=== PATIENT | female | born 1975 | race Caucasian/White ===

== ENCOUNTER → 2019-09-04 13:10 | Outpatient (CLI) | payer BC, SELFPAY ==
--- NOTE | ~2019-09-04 | MM_ITS ---
EXAMINATION: MM screening [facility] BI w bryan HISTORY: Screening mammogram TECHNIQUE: Craniocaudal and mediolateral oblique 3-D tomosynthesis images were obtained and synthetic 2-D images were generated. CAD analysis was submitted and interpreted. COMPARISON: 08/07/2018 BREAST PARENCHYMAL COMPOSITION: The breasts are heterogeneously dense, which may obscure small masses . FINDINGS: There is no evidence of suspicious mass, calcification, or architectural distortion to sugg est malignancy in either breast. There has been no suspicious interval change. IMPRESSION: 1. No mammographic evidence of malignancy. 2. Recommend routine screening mammography in one year. BI-RADS Category 1: Negative Reviewed, dictated and finalized at location A.
== END ==
PROVIDERS: Visit Provider Physician Assistant
DX: Z12.31 Encounter for screening mammogram for malignant neoplasm of breast (principal)
CPT/HCPCS: 77063; 77067

== ENCOUNTER → 2020-09-18 10:47 | Outpatient (CLI) | payer BC, SELFPAY ==
--- NOTE | ~2020-09-18 | MM_ITS ---
EXAMINATION: MM screening [facility] BI w bryan HISTORY: Screening mammogram TECHNIQUE: Craniocaudal and mediolateral oblique 3-D tomosynthesis images were obtained and synthetic 2-D images were generated. CAD analysis was submitted and interpreted. COMPARISON: 09/04/2019, 08/07/2018 BREAST PARENCHYMAL COMPOSITION: The breasts are heterogeneously dense, which may obscure small masses . FINDINGS: There is no evidence of suspicious mass, calcification, or architectural distortion to sugg est malignancy in either breast. There has been no suspicious interval change. IMPRESSION: 1. No mammographic evidence of malignancy. 2. Recommend routine screening mammography in one year. BI-RADS Category 1: Negative Reviewed, dictated and finalized at location A.
== END ==
PROVIDERS: PCP Physician Assistant; Visit Provider Obstetrics & Gynecology
DX: Z12.31 Encounter for screening mammogram for malignant neoplasm of breast (principal)
CPT/HCPCS: 77063; 77067

== ENCOUNTER → 2021-11-09 14:05 | Outpatient (CLI) | payer OTHER, SELFPAY ==
--- NOTE | ~2021-11-09 | MM_ITS ---
EXAMINATION: MM screening [facility] BI w bryan HISTORY: Screening mammogram TECHNIQUE: Craniocaudal and mediolateral oblique 3-D tomosynthesis images were obtained and synthetic 2-D images were generated. CAD analysis was submitted and interpreted. COMPARISON: 09/18/2020, 09/04/2019 BREAST PARENCHYMAL COMPOSITION: The breasts are heterogeneously dense, which may obscure small masses . FINDINGS: There is no suspicious mass, calcification, or architectural distortion to suggest malignan cy in either breast. There has been no suspicious interval change. IMPRESSION: 1. No mammographic evidence of malignancy. 2. Recommend routine screening mammography in one year. BI-RADS Category 1: Negative Reviewed, dictated and finalized at location A.
== END ==
PROVIDERS: PCP Physician Assistant; Visit Provider Obstetrics & Gynecology
DX: Z12.31 Encounter for screening mammogram for malignant neoplasm of breast (principal)
CPT/HCPCS: 77063; 77067

== ENCOUNTER → 2021-12-22 15:14 | Outpatient (CLI) | payer OTHER, SELFPAY ==
--- NOTE | ~2021-12-22 | XR_ITS ---
EXAM: XR lumbar spine 2-3V DATE: 12/22/2021 15:34 HISTORY: Lumbar radiculopathy . COMPARISON: None available. FINDINGS: Osteopenia. 5 nonrib-bearing lumbar-type vertebral bodies. Pedicles intact. 3 mm anterolist hesis of L4 on L5, otherwise normal vertebral body alignment. Concave endplate deformities at multipl e levels. No anterior wedge deformities. Mild disc space narrowing at L4-5 and L5-S1. Multilevel face t sclerosis and hypertrophy. No fracture or dislocation. Partially visualized right hip arthroplasty. IMPRESSION: Grade 1 anterolisthesis of L4 on L5. Mild degenerative change at L4-5 and L5-S1. Multilev el facet arthropathy. Osteoporotic endplate deformities. Reviewed, dictated and finalized at location K. IMPRESSION: Grade 1 anterolisthesis of L4 on L5. Mild degenerative change at L4 -5 and L5-S1. Multilevel facet arthropathy. Osteoporotic endplate deformities.
== END ==
PROVIDERS: PCP Physician Assistant; Visit Provider Physician Assistant
DX: M47.27 Other spondylosis with radiculopathy, lumbosacral region (principal)
CPT/HCPCS: 72100

== ENCOUNTER → 2022-01-06 16:27 | Outpatient (CLI) | payer OTHER, SELFPAY ==
--- NOTE | ~2022-01-06 | MR_ITS ---
EXAMINATION: MR lumbar spine wo con DATE: 01/06/2022 16:54 INDICATION: Lumbar radiculopathy TECHNIQUE: Magnetic resonance imaging (MRI) of the lumbar spine was performed without intravenous con trast. Sequences included sagittal T2-weighted FSE, sagittal T2-weighted FS FSE, sagittal T1-weighted FSE, and axial T2-weighted FSE. COMPARISON: Lumbar spine radiographs dated 12/22/2021 FINDINGS: 5 degrees lumbar levocurvature. 2-3 mm anterolisthesis L4 on L5. Vertebral body heights are normal. Normal marrow signal. Annular fissure and mild disc height loss at L4-L5. Additional annular fissure at L5-S1. The conus medullaris terminates at L1. There is normal signal in the caudal spinal cord. Pa ravertebral soft tissues are unremarkable. The following disc levels are specifically discussed: T12-L1: The disc does not extend beyond the endplate margin. There is no facet joint osteoarthritis. There is no neural foraminal stenosis. There is no central canal stenosis. L1-L2: The disc does not extend beyond the endplate margin. There is mild bilateral facet joint osteo arthritis. There is no neural foraminal stenosis. There is no central canal stenosis. L2-L3: The disc does not extend beyond the endplate margin. There is mild left and minimal right face t joint osteoarthritis. There is no neural foraminal stenosis. There is no central canal stenosis. L3-L4: Disc is minimally bulging. There is mild bilateral facet joint osteoarthritis. There is minima l bilateral neural foraminal stenosis. There is no central canal stenosis. L4-L5: Disc is bulging. There is severe bilateral facet joint osteoarthritis. There is mild right and moderate left neural foraminal stenosis. There is moderate central canal stenosis along with narrowi ng of the lateral recesses, left greater than right. L5-S1: Disc is minimally bulging. There is mild to moderate bilateral facet joint osteoarthritis. The re is mild right and mild to moderate left neural foraminal stenosis. There is no central canal steno sis. IMPRESSION: 1. Mild lower lumbar spondylosis with 2-3 mm anterolisthesis of L4 on L5 which contributes to moderat e central canal stenosis and moderate left neural foraminal stenosis at this level. Reviewed, dictated and finalized at location B. IMPRESSION: 1. Mild lower lumbar spondylosis with 2-3 mm anterolisthesis of L4 on L5 which contributes to moderate central canal stenosis and moderate left neural foramin al stenosis at this level.
== END ==
PROVIDERS: PCP Physician Assistant; Visit Provider Physician Assistant
DX: M54.16 Radiculopathy, lumbar region (principal); M43.06 Spondylolysis, lumbar region; M48.061 Spinal stenosis, lumbar region without neurogenic claudication
CPT/HCPCS: 72148

== ENCOUNTER → 2023-01-03 13:57 | Outpatient (CLI) | payer OTHER, SELFPAY ==
--- NOTE | ~2023-01-03 | MM_ITS ---
EXAMINATION: MM screening [facility] BI w bryan HISTORY: Screening mammogram TECHNIQUE: Craniocaudal and mediolateral oblique 3-D tomosynthesis images were obtained and synthetic 2-D images were generated. Bilateral rotated lateral CC views. CAD analysis was submitted and interp reted. COMPARISON: 11/09/2021, 09/18/2020, 09/04/2019 bilateral screening mammogram examinations BREAST PARENCHYMAL COMPOSITION: The breasts are heterogeneously dense, which may obscure small masses . FINDINGS: There is no evidence of suspicious mass, calcification, or architectural distortion to sugg est malignancy in either breast. There has been no suspicious interval change. IMPRESSION: 1. No mammographic evidence of malignancy. 2. Recommend routine screening mammography in one year. BI-RADS Category 1: Negative Reviewed, dictated and finalized at location A.
== END ==
PROVIDERS: PCP Physician Assistant; Visit Provider Obstetrics & Gynecology
DX: Z12.31 Encounter for screening mammogram for malignant neoplasm of breast (principal)
CPT/HCPCS: 77063; 77067

== ENCOUNTER 2023-03-04 04:03 | Day surgery (SDC) | payer OTHER, SELFPAY ==
[2023-02-22 15:40] VITALS: BMI 27.4
--- NOTE | 2023-02-22 15:48 | SUR.PREOP ---
Report to the Outpatient Waiting Room, entrance under the green pavilion located off [facility], at time 0600 on date 03/04/23. Planned Procedure Time: 0730. Time changes happen often and if your time is changed the preop area will call you the afternoon before. - You and your visitor will be asked to self-screen and do not enter if you have any COVID symptoms. - A mask is optional within the hospital at this time. Patients may have clear liquids (water, carbonated beverages, clear teas, apple juice) until 3 hours prior to surgery with a maximum of 20 ounces. - No food from midnight until time of surgery BEFORE 0430 - Infants may have breast milk until 4 hours before surgery, infant formula 6 hours prior to surgery. - Children will be allowed to drink immediately following surgery. If applicable, please bring a bottle or sippy cup to assist with drinking. Juice, water, soda, and popsicles are readily available. For infants on formula, please bring formula the day of surgery. Pacifiers are allowed. Take the following medications with a SIP of water the morning of surgery: __HOLD MORNING MEDS DO NOT STOP ANY OF YOUR OTHER PRESCRIPTION MEDICATIONS PRIOR TO SURGERY ?EXCEPT THE FOLLOWING Medications to discontinue per physician Date to take last dose Please no make-up, nail upper sorbian, hairspray, perfume, deodorant, or body powder the day of surgery. No jewelry (including any body piercings) or valuables the day of surgery, leave them at home. Please take a shower or bath the night before, or the morning of, surgery with an antibacterial soap. Wear comfortable, loose fitting clothing. Children are encouraged to wear pajamas. - Jewelry must be removed prior to entering the operating room. Rings and piercings that are not removed may be cut off. - The hospital will not accept responsibility for valuables. - Please leave all valuables, including medications, at home the day of surgery. If you are going home after surgery, a licensed batch mixing truck driver must drive you home. - NO public transportation without another adult if you receive anesthesia. - We recommend that an adult stay with you for 24 hours following discharge. - We also recommend that you do not drive, make important decision, drink alcoholic beverages, or take any drugs that were not prescribed by your health care provider for at least 24 hours after your discharge time. For Pediatric surgeries, we recommend two adults accompany the child home. Follow any additional instructions given to you from your surgeon. If you or anyone in your household have experienced Covid symptoms in the past week, please notify your surgeon or the nurse liaison at the phone number below for possible testing. Telephone instructions given to ___PATIENT____and asked if any additional questions and then verbalized understanding. Patient advised to call surgeon office or pre surgery nurse liaison [phone] if any additional questions.
--- NOTE | 2023-03-02 21:50 | PM.IMHP ---
H&P: HPI History of Present Illness Date/Time: 03/02/23 21:50 Chief Complaint: Incontinence Narrative: 48-year-old with stress incontinence. She desires surgical correction Review of Systems Review of Systems: All systems reviewed & are unremarkable except as noted in HPI and below PMFSH Past Medical History Medical History Heart murmur High cholesterol Mononucleosis Rheumatic fever Screening mammogram for breast cancer Surgical History Surgical History H/O gynecological procedure Mirena 11/15/2019 - removal / reinsertion Mirena insertion ? History of carpal tunnel surgery 2006 History of dilation and curettage History of orthopedic surgery R hip as an infant R hip replacement History of placement of ear tubes Family History Family History Father Hypertension Mother Hypertension Family history of coronary artery disease Hyperlipidemia Grandparent Hypertension Acute myocardial infarction Congestive heart failure Arthritis Social History Social History Smoking status: Never smoker Alcohol intake: current Alcohol use details: OCCASIONAL Substance use: never Substance use type: does not use Living arrangements: with family Occupation/Education: occupation Additional occupation/education comments: Teacher Gender identity (if verbalized by the patient): Female Sexual Orientation (if Verbalized by the Patient): Straight or Heterosexual Spiritual care concerns: No Meds Home Medications and Allergies Home Medications Medication Instructions Recorded Confirmed Type levonorgestrel 21 mcg/24 hours (8 1 device intrauterine ONCE 09/16/21 02/22/23 History yrs) 52 mg intrauterine device (Mirena) rosuvastatin 5 mg tablet 5 mg PO DAILY 09/16/21 02/22/23 History estradiol 0.5 mg tablet 0.5 mg PO DAILY #90 tabs 01/04/23 02/22/23 Rx cetirizine 10 mg tablet (Zyrtec) 10 mg PO DAILY 02/22/23 02/22/23 History Allergies Allergy/AdvReac Type Severity Reaction Status Date / Time aspirin Allergy Intermediate Hives Verified 10/20/22 15:37 SALICYLATES Allergy Unknown HIVES Uncoded 10/20/22 15:37 Exam Narrative: no acute distress normal breathing positive urethral mobility alert and oriented x3 Assessment and Plan Assessment and plan (1) STEVEN (stress urinary incontinence, female): Code(s): N39.3 - Stress incontinence (female) (male) Status: Acute Assessment and Plan: plan for urethral sling. Understands risks of bleeding, infection, damage to surrounding organs, damage to the urinary tract, vaginal mesh extrusion, urinary tract mesh erosion, obstructive voiding requiring secondary procedure, hip and leg pain, dyspareunia. Agrees to proceed
--- NOTE | 2023-03-04 06:57 | P.PNAN_ITS ---
Anes - Initial Pre Proc Eval Procedure: Operation Date: 03/04/23 07:30 Proposed Procedures p Urethral Sling - Samuel Branham MD Date/Time: 03/04/23 06:57 Surgeon: Samuel Branham MD Pre Op Diagnosis: stress incont Patient Data Age: 48 Gender: F Height: 1.68 m Weight: 79.2 kg Allergies Allergy/AdvReac Type Severity Reaction Status Date / Time aspirin Allergy Intermediate Hives Verified 03/04/23 06:42 SALICYLATES Allergy Unknown HIVES Uncoded 03/04/23 06:42 Home Medications Medication Instructions Recorded Confirmed Type levonorgestrel 21 mcg/24 hours (8 1 device intrauterine ONCE 09/16/21 03/04/23 History yrs) 52 mg intrauterine device (Mirena) rosuvastatin 5 mg tablet 5 mg PO DAILY 09/16/21 03/04/23 History estradiol 0.5 mg tablet 0.5 mg PO DAILY #90 tabs 01/04/23 03/04/23 Rx cetirizine 10 mg tablet (Zyrtec) 10 mg PO DAILY 02/22/23 03/04/23 History Patient hx anesthesia problems: none Family hx anesthesia problems: none Results Review: All pre-operative results and documents have been reviewed as part of the pre- operative evaluation. [facility] Past Medical History Medical History Heart murmur High cholesterol Mononucleosis Rheumatic fever Screening mammogram for breast cancer Surgical History Surgical History H/O gynecological procedure Mirena 11/15/2019 - removal / reinsertion Mirena insertion ? History of carpal tunnel surgery 2006 History of dilation and curettage History of orthopedic surgery R hip as an infant R hip replacement History of placement of ear tubes Family History Family History Father Hypertension Mother Hypertension Family history of coronary artery disease Hyperlipidemia Grandparent Hypertension Acute myocardial infarction Congestive heart failure Arthritis Social History Social History Smoking status: Never smoker Alcohol intake: current Alcohol use details: OCCASIONAL Substance use: never Substance use type: does not use Living arrangements: with family Occupation/Education: occupation Additional occupation/education comments: Teacher Gender identity (if verbalized by the patient): Female Sexual Orientation (if Verbalized by the Patient): Straight or Heterosexual Spiritual care concerns: No Anes - Eval Final PreProcedure Day of Procedure 03/04/23 06:57 Patient weight: overweight Heart: regular rate and rhythm Lungs: clear to auscultation Airway: Mallampati scale class II Neurological: alert and oriented Last oral intake: >/= 8 hours ASA classification: II Emergent: no Anesthetic plan: proceed Anesthesia type and monitoring: general GIVS and standard monitoring Results Review: All pre-operative results and documents have been reviewed as part of the pre- operative evaluation. Informed Consent: The patient's anesthetic plan and its attendant risks and benefits were discussed with the patient/family/POA. Questions were solicited and answers provided to the satisfaction of the patient/family/POA.
[2023-03-04 06:58] VITALS: BP 111/62; PULSE 70; RESP 16; TEMP 36.5; O2SAT 95
[2023-03-04] MEDS: LACTATED RINGERS 1,000 ML 30 ML IV CONT (07:02)
--- NOTE | 2023-03-04 07:17 | WPDHPUPDATE1 ---
History and Physical Update Update Date/Time: 03/04/23 07:17 History and Physical has been reviewed, including an updated exam of the patient. There are NO changes in the patient's condition. Risks, benefits, and alternatives have been discussed and questions answered. Patient agrees to proceed with procedure.
[2023-03-04] MEDS: ceFAZolin 2 GM/D5W 50 ML 2 GM/50 ML BAG IVPB (07:26)
[2023-03-04 07:55] VITALS: BP 109/71; PULSE 70; RESP 14; O2SAT 94
--- NOTE | 2023-03-04 07:57 | W.PM.PROC2 ---
Procedure Note - Detailed Date of Procedure 03/04/23 Pre-op Diagnosis stress incont Post-op Diagnosis Same Procedure Performed mid urethral sling cystoscopy Surgeon Samuel Branham MD Anesthesia MAC and Local Indications This is a female with confirm stress urinary incontinence. She desires surgical correction. She understands the risks of bleeding, infection, injury to the urinary tract, vaginal mesh extrusion, urinary tract mesh erosion, obstructive voiding requiring a secondary procedure, hip and leg pain, dyspareunia, inability to improve overactive bladder symptoms. She agrees to proceed. Description of Procedure She was correctly identified. Informed consent obtained. She was brought the operating room. She was given appropriate anesthesia. She was given appropriate perioperative antibiotics. A time-out performed. I marked out the site of the inner thigh incisions. I anesthetized the skin and made those incisions. I anesthetized the anterior vaginal wall over the mid urethra. I made a 1 cm incision. I dissected out laterally taking great care not to injure the refilled vaginal wall. I passed the helical trocars. First on the left. Then on the right. I did this from the thigh incision towards the vaginal incision. The sling was connected to the trocars and brought out through the thigh incision. I tensioned the sling appropriately. I cut and the plastic sheaths. I then closed the incision with 2 0 Vicryl. On cystoscopy there is no tumors or surgical artifact. There was no surgical artifact in the urethra. I cut the excess sling material. Close incisions with glue. She was awakened and transferred to the PACU in stable condition. Implants Urethral sling Estimated Blood Loss 30 Drains No Packing No Pathology None sent Complications No immediate complications Condition Stable Disposition PACU
[2023-03-04 08:25] VITALS: BP 121/59; PULSE 51; RESP 20
[2023-03-04 08:55] VITALS: BP 124/76; PULSE 54; RESP 20
== END 2023-03-04 09:15 | disposition home or self-care (01) ==
PROVIDERS: PCP Physician Assistant; Visit Provider Urology
PROC: (CPT 57288; principal; 2023-03-04 07:30)
DX: N39.3 Stress incontinence (female) (male) (principal); E78.00 Pure hypercholesterolemia, unspecified
CPT/HCPCS: 57288; C1771; J0690; J2250; J2704; J3010; J7030; J7120

== ENCOUNTER 2024-03-14 14:55 | Outpatient (CLI) | payer OTHER, SELFPAY ==
--- NOTE | ~2024-03-14 | MM_ITS ---
EXAMINATION: MM screening [facility] w bryan HISTORY: Screening mammogram TECHNIQUE: Craniocaudal and mediolateral oblique 3-D tomosynthesis images were obtained and synthetic 2-D images were generated. CAD analysis was submitted and interpreted. COMPARISON: 01/03/2023, 11/09/2021, 09/18/2020, 09/04/2019 BREAST PARENCHYMAL COMPOSITION:Dense: The breasts are heterogeneously dense, which may obscure small masses. FINDINGS: No suspicious mass, calcification, or architectural distortion are identified in either sita ast to suggest malignancy. There has been no suspicious interval change. IMPRESSION: No mammographic evidence of malignancy. Recommend routine screening mammography in one year. BI-RADS Category 1: Negative Reviewed, dictated and finalized at location .
== END 2024-03-14 14:56 | disposition home or self-care (01) ==
LOC: MICIMG 14:56
PROVIDERS: PCP Physician Assistant; Visit Provider Obstetrics & Gynecology
DX: Z12.31 Encounter for screening mammogram for malignant neoplasm of breast (principal)
CPT/HCPCS: 77063; 77067

== ENCOUNTER 2025-05-08 15:57 | Outpatient (CLI) | payer OTHER, SELFPAY ==
--- NOTE | ~2025-05-08 | MM_ITS ---
EXAMINATION: MM screening [facility] BI w bryan HISTORY: Screening TECHNIQUE: Craniocaudal and mediolateral oblique 3-D tomosynthesis images were obtained and synthetic 2-D images were generated. CAD analysis was submitted and interpreted. COMPARISON: Comparison to multiple prior studies sequentially, with oldest reviewed study dated 08/07/2018. BREAST PARENCHYMAL COMPOSITION: Dense: The breasts are heterogeneously dense, which may obscure small masses FINDINGS: There is a new mass in the lower central left breast, posterior third, best seen on CC view. The right breast is stable without evidence for malignancy. IMPRESSION: 1. New left breast mass. 2. Additional mammographic views and possible breast ultrasound are recommended. BI-RADS Category 0: Incomplete: Needs additional imaging evaluation. Reviewed, dictated and finalized at location B. MIXER TENDER IMPRESSION: 1. New left breast mass. 2. Additional mammographic views and possible breast ultrasound are recommended . BI-RADS Category 0: Incomplete: Needs additional imaging evaluation.
== END 2025-05-08 15:58 | disposition home or self-care (01) ==
LOC: MICIMG 15:58
PROVIDERS: PCP Physician Assistant; Visit Provider Obstetrics & Gynecology
DX: Z12.31 Encounter for screening mammogram for malignant neoplasm of breast (principal); R92.8 Other abnormal and inconclusive findings on diagnostic imaging of breast
CPT/HCPCS: 77063; 77067

== ENCOUNTER 2025-05-16 08:36 | Outpatient (CLI) | payer OTHER, SELFPAY ==
--- NOTE | ~2025-05-16 | MMUS_ITS ---
EXAMINATION: MM diagnostic [facility] LT w bryan, US breast LT limited INDICATION: 50-year old female; BI-RADS 0, callback from screening to evaluate a new left breast mass. COMPARISON: 05/08/2025 TECHNIQUE: Digital breast tomosynthesis True lateral and spot compression of the LEFT breast were obtained with computer-aided detection to assist in interpretation of the study. FINDINGS: The breasts are heterogeneously dense, which may obscure small masses. A mass with ill-defined margins anterior and posteriorly and containing a few punctate calcifications persist in the inferior central in the region of the inframammary fold. LEFT BREAST ULTRASOUND FINDINGS: Targeted ultrasound evaluation of the area of concern was completed. There is a markedly hypoechoic mass with irregular margins measuring 0.37 x 0.55 x 0.46 cm at 6:00 location, 9 cm FN. This lesion is in the general area of the area of concern on the mammogram. However the mammographic features are more concerning. In addition, there is a 0.3 cm circumscribed hypoechoic lesion at 6:00, 9 cm FN. Most likely a complicated cyst. IMPRESSION: 1. Suspicious left breast mass at 6:00 location. Recommend biopsy/aspiration. 2. Partially inverted left nipple correlates to mammographic asymmetry. This finding is chronic. RECOMMENDATION: Ultrasound-guided core biopsy/aspiration of left breast mass at 6:00, 9cm FN with correlation to ensure that the lesion matches the mammographic finding. BI-RADS 4, SUSPICIOUS Reviewed, dictated and finalized at location B. ER WATERPROOFING MACHINE OPERATOR IMPRESSION: 1. Suspicious left breast mass at 6:00 location. Recommend biopsy/aspiration. 2. Partially inverted left nipple correlates to mammographic asymmetry. This f inding is chronic. RECOMMENDATION: Ultrasound-guided core biopsy/aspiration of left breast mass at 6:00, 9cm FN wi th correlation to ensure that the lesion matches the mammographic finding. BI-RADS 4, SUSPICIOUS
== END 2025-05-16 08:37 | disposition home or self-care (01) ==
LOC: MICIMG 08:37
PROVIDERS: PCP Physician Assistant; Visit Provider Obstetrics & Gynecology
DX: N63.20 Unspecified lump in the left breast, unspecified quadrant (principal); R92.8 Other abnormal and inconclusive findings on diagnostic imaging of breast
CPT/HCPCS: 76642; 77061; 77065; G0279

== ENCOUNTER 2025-05-22 08:20 | Outpatient (CLI) | payer OTHER, SELFPAY ==
--- NOTE | ~2025-05-22 | MMUS_ITS ---
PROCEDURE(S): MM post biopsy diagnostic LT, US_BCALIMG_US INDICATION(S): The patient was scheduled for attempted ultrasound-guided cyst aspiration with possible core biopsy COMPARISON(S): May 08 and May 16 TECHNIQUE/FINDINGS: Informed consent was obtained. Under sterile conditions, 1% lidocaine was injected as local anesthetic. With sonographic guidance, the structure in question was aspirated. A collapsed completely, and fluid was discarded. No complications occurred. The patient tolerated the procedure well. Follow-up mammogram is nondiagnostic for the asymmetry seen on the screening and diagnostic studies. There is hazy opacity consistent with the lidocaine. 3 month follow-up left mammogram is recommended. IMPRESSION: Status post ultrasound-guided cyst aspiration. Three-month follow-up left mammogram is recommended. BI-RADS 3-probably benign findings. Reviewed, dictated and finalized at location B. CANA STUDIES PROFESSOR IMPRESSION: Status post ultrasound-guided cyst aspiration. Three-month follow-up left mammo gram is recommended. BI-RADS 3-probably benign findings.
== END 2025-05-22 08:21 | disposition home or self-care (01) ==
LOC: ANHFOHIMG 08:20
PROVIDERS: PCP Physician Assistant; Visit Provider Surgery
DX: N63.25 Unspecified lump in the left breast, overlapping quadrants (principal); R92.8 Other abnormal and inconclusive findings on diagnostic imaging of breast
CPT/HCPCS: 19000; 76942; 77065